=== PATIENT | female | born 1990 | race African-American/Black ===

== ENCOUNTER 2016-12-30 22:48 | Emergency (ER) | payer OTHER ==
[~2016-12-30] VITALS: Ht 154.9 cm; Wt 91.0 kg
[~2016-12-30 22:48] MED LIST: AMOX125S8 PO; AMOX500T2 PO
[2016-12-31] MEDS ORDERED: SODIUM CHLORIDE 0.9% 1,000 ML IV ONE (02:12)
[2016-12-31] MEDS ORDERED: KETOROLAC 30MG/ML VIAL IV STA (02:12)
[2016-12-31 02:25] LABS: CLARITY URINE CLEAR (CLEAR); COLOR URINE YELLOW (YELLOW); GLUCOSE URINE NEGATIVE (NEGATIVE); KETONES URINE TRACE (NEGATIVE); LEUKOCYTE ESTERASE URINE NEGATIVE (NEGATIVE); NITRITE URINE NEGATIVE (NEGATIVE); OCCULT BLOOD URINE NEGATIVE (NEGATIVE); PH URINE 5.5 (4.5-8.0); PROTEIN URINE NEGATIVE (NEGATIVE); SPECIFIC GRAVITY URINE 1.031 (1.005-1.030)
[2016-12-31 02:41] LABS: BASOPHILS % 0.9 % (0.0-2.0); EOSINOPHILS % 1.5 % (0.0-5.0); HEMATOCRIT. 33.6 % (36.0-48.0); LYMPHOCYTES % 55.7 % (20.0-50.0); MEAN CORPUSCULAR HEMOGLOBIN 25.1 pg (28.0-32.0); MEAN CORPUSCULAR VOLUME 76.7 fL (81.0-99.0); MEAN PLATELET VOLUME 7.5 fl (7.4-10.4); MONOCYTES % 4.6 % (2.0-8.0); NEUTROPHILS % 37.3 % (40.0-76.0); PLATELET 277 x1000/uL (130-400); RED BLOOD CELL COUNT 4.38 mill/uL (4.2-5.4); RED CELL DISTRIBUTION WIDTH 16.4 % (11.6-14.6)
[2016-12-31 02:45] LABS: INR 1.1; PROTHROMBIN TIME 10.9 sec
[2016-12-31 02:50] LABS: CARBON DIOXIDE 29 mEq/L (21-32); CHLORIDE 105 mEq/L (98-107)
[2016-12-31 02:54] LABS: HCG SCREEN NEGATIVE
[2016-12-31 03:23] VITALS: BP 130/77
== END 2016-12-31 04:10 | disposition home or self-care (01) ==
LOC: ER 22:48
DX: R10.30 Lower abdominal pain, unspecified (principal); R10.10 Upper abdominal pain, unspecified; R03.0 Elevated blood-pressure reading, without diagnosis of hypertension; F17.210 Nicotine dependence, cigarettes, uncomplicated
CPT/HCPCS: 36415; 80053; 81003; 84703; 85025; 85610; 96360; 96361; 99285; J1885; Z7610; J7030

== ENCOUNTER 2017-05-20 12:52 | Emergency (ER) | payer OTHER ==
[~2017-05-20] VITALS: Ht 154.9 cm; Wt 91.0 kg
[2017-05-20 17:44] VITALS: BP 159/97
== END 2017-05-20 19:11 | disposition home or self-care (01) ==
LOC: ER 13:51
DX: J06.9 Acute upper respiratory infection, unspecified (principal); F17.200 Nicotine dependence, unspecified, uncomplicated; F12.10 Cannabis abuse, uncomplicated
CPT/HCPCS: 71010; 81025; 87804; 99285; Z7610

== ENCOUNTER 2018-02-02 20:00 | Emergency (ER) | payer OTHER ==
[~2018-02-02] VITALS: Ht 154.9 cm; Wt 93.0 kg
[2018-02-02 23:58] VITALS: BP 129/91
== END 2018-02-02 23:58 | disposition home or self-care (01) ==
LOC: ER 20:00
DX: L03.011 Cellulitis of right finger (principal); F12.10 Cannabis abuse, uncomplicated
CPT/HCPCS: 99283

== ENCOUNTER 2019-07-27 20:08 | Emergency (ER) | payer OTHER ==
[~2019-07-27] VITALS: Ht 154.9 cm; Wt 91.0 kg
[~2019-07-27 20:08] MED LIST changes: +AMOX125S12 PO; -AMOX125S8 PO
[2019-07-28] MEDS ORDERED: PROMETHAZINE/DEXTROMETHORPHAN 6.25-15MG/5ML BOTTLE 120ML PO ONE (00:15)
[2019-07-28] MEDS ORDERED: PROMETHAZINE HCL 6.25 MG/5 ML 118ML PO ONE (00:45)
[2019-07-28 01:40] VITALS: BP 129/78
== END 2019-07-28 01:41 | disposition home or self-care (01) ==
LOC: ER 20:08
DX: J20.9 Acute bronchitis, unspecified (principal)
CPT/HCPCS: 71045; 99283; Q0169